=== PATIENT | female | born 1980 | race Caucasian/White ===

== ENCOUNTER 2022-10-28 22:09 | Emergency (ER) | payer MEDICAID ==
[~2022-10-28] VITALS: Ht 160 cm; Wt 50.9 kg
[2022-10-28 22:22] VITALS: BP 121/82
[2022-10-28 23:52] LABS: CLARITY,URINE CLEAR (Clear); COLOR,URINE YELLOW (Yellow); GLUCOSE, URINE NEGATIVE (Neg); KETONES,URINE TRACE mg/dl (Neg); LEUKOCYTE ESTERASE ,URINE NEGATIVE (Neg); NITRITES, URINE NEGATIVE (Neg); OCCULT BLOOD,URINE TRACE-INTACT (Neg); PROTEIN,URINE NEGATIVE (Neg); UROBILINOGEN,URINE 0.2 E.U/dL (0.2-1.0)
[2022-10-28 23:59] LABS: UA COLLECTION TYPE CLN CATCH MIDSTREAM
[2022-10-29] LABS: BACTERIA,URINE FEW /HPF (Neg); RBC,URINE 0-2 /HPF (0-2); SQUAMOUS EPITHELIAL CELL,UR FEW /LPF (FEW); WBC,URINE 0-4 /HPF (0-4)
[2022-10-29 00:01] LABS: MUCUS STRANDS FEW /LPF (Neg)
[2022-10-29 00:15] LABS: BASOPHILS # (AUTO) 0.1 X10'3 (0-0.2); BASOPHILS % (AUTO) 1.1 % (0-1); EOSINOPHILS # (AUTO) 0.3 X10'3 (0-0.9); EOSINOPHILS % (AUTO) 3.1 % (0-6); HEMATOCRIT 38.1 % (35.0-45.0); HEMOGLOBIN 13.1 g/dl (12.0-16.0); LYMPHOCYTES # (AUTO) 2.7 X10'3 (1.1-4.8); LYMPHOCYTES % (AUTO) 25.5 % (21-51); MEAN CORPUSCULAR HEMOGLOBIN 32.6 PG (27.0-31.0); MEAN CORPUSCULAR HGB CONC 34.4 g/dL (33.0-36.5); MEAN CORPUSCULAR VOLUME 94.9 FL (78-98); MEAN PLATELET VOLUME 8.1 FL (7.4-10.4); MONOCYTES # (AUTO) 0.6 X10'3 (0-0.9); MONOCYTES % (AUTO) 5.8 % (2-12); NEUTROPHILS % (AUTO) 64.5 % (42-75); PLATELET COUNT 200 X10'3 (140-440); RED BLOOD COUNT 4.02 X10'6 (4.20-5.60); RED CELL DISTRIBUTION WIDTH 13.2 % (11.5-14.5); WHITE BLOOD COUNT 10.8 X10'3 (4.5-11.0)
[2022-10-29] MEDS ORDERED: LIDO-12 TP (00:21)
[2022-10-29] MEDS ORDERED: CYCL-1 PO (00:21)
[2022-10-29] MEDS ORDERED: ketorolac trometh inj. 60 MG/2 ML VIAL IM ONE (00:25)
[2022-10-29 00:28] LABS: ALANINE AMINOTRANSFERASE 42 U/L (12-78); ALBUMIN/GLOBULIN RATIO 1.2 (1.1-1.5); ALKALINE PHOSPHATASE 47 IU/L (46-116); ANION GAP 9 (8-16); ASPARTATE AMINO TRANSFERASE 24 U/L (10-37); BILIRUBIN,TOTAL 0.2 MG/DL (0.1-1.0); BLOOD UREA NITROGEN 8 MG/DL (7-18); BUN/CREATININE RATIO 11.1 (10.0-20.0); CALCIUM 8.5 MG/DL (8.5-10.1); CHLORIDE 104 MMOL/L (99-107); CREATININE 0.72 MG/DL (0.40-0.90); GLUCOSE 85 MG/DL (70-104); SODIUM 140 MMOL/L (135-145); TOTAL CARBON DIOXIDE 27.2 MMOL/L (24-32); TOTAL PROTEIN 7.3 G/DL (6.4-8.2); eGFR 88 ML/MIN
== END 2022-10-29 00:34 | disposition home or self-care (01) ==
LOC: ER 22:10
DX: G89.29 Other chronic pain (principal); M54.59 Other low back pain; F17.200 Nicotine dependence, unspecified, uncomplicated; Z59.00 Homelessness unspecified; Z79.899 Other long term (current) drug therapy
CPT/HCPCS: 36415; 80053; 81001; 85025; 96372; 99283; J1885

== ENCOUNTER 2023-05-16 19:38 | Emergency (ER) | payer MEDICAID ==
[~2023-05-16] VITALS: Ht 160 cm; Wt 50.0 kg
[~2023-05-16 19:38] MED LIST: CYCL-1 PO; LIDO-12 TP
[2023-05-16 19:44] VITALS: BP 123/78; PULSE 102; RESP 16; TEMP 98.2; O2SAT 100
== END 2023-05-16 21:51 | disposition home or self-care (01) ==
LOC: ER 19:39
DX: S00.03XA Contusion of scalp, initial encounter (principal); W18.39XA Other fall on same level, initial encounter; Y93.89 Activity, other specified; Y92.89 Other specified places as the place of occurrence of the external cause; Y99.8 Other external cause status
CPT/HCPCS: 70450; 99284

== ENCOUNTER 2023-07-05 08:14 | Emergency (ER) | payer OTHER, MEDICAID ==
[~2023-07-05] VITALS: Ht 157.5 cm; Wt 51.5 kg
[2023-07-05] MEDS ORDERED: ketorolac trometh. 30mg/ml inj. IM ONE (09:00)
[2023-07-05] MEDS ORDERED: CYCL-394 PO (09:05)
[2023-07-05] MEDS ORDERED: IBUP-1986 PO (09:05)
[2023-07-05] MEDS: cyclobenzaprine 10mg tablet PO ONE (09:13)
[2023-07-05] MEDS: ketorolac tromethamine 15mg/ml inj. IM ONE (09:14)
[2023-07-05 09:20] VITALS: BP 108/68; PULSE 88; RESP 18; TEMP 98; O2SAT 98
== END 2023-07-05 09:22 | disposition home or self-care (01) ==
LOC: ER 08:14
DX: S39.012A Strain of muscle, fascia and tendon of lower back, initial encounter (principal); S29.012A Strain of muscle and tendon of back wall of thorax, initial encounter; Z72.89 Other problems related to lifestyle; Z56.0 Unemployment, unspecified; Z79.899 Other long term (current) drug therapy; Z79.1 Long term (current) use of non-steroidal anti-inflammatories (NSAID); V89.2XXA Person injured in unspecified motor-vehicle accident, traffic, initial encounter; Y93.89 Activity, other specified; Y92.89 Other specified places as the place of occurrence of the external cause; Y99.8 Other external cause status
CPT/HCPCS: 96372; 99283; J1885

== ENCOUNTER 2024-06-30 14:09 | Inpatient (IN) | payer MEDICAID ==
[~2024-06-30] VITALS: Ht 160 cm; Wt 50.0 kg
[~2024-06-30 14:09] MED LIST changes: +IBUP-1986 PO; -LIDO-12 TP; +LIDO-6 TP
[2024-06-30] MEDS: normal saline 1000ML IV soln IVB ONE ×2 (17:17→21:47)
[2024-06-30] MEDS: morphine 4 MG/ML inj SYRINge IV ONE ×2 (17:17→20:41)
[2024-06-30 17:25] LABS: ALANINE AMINOTRANSFERASE 19 U/L (12-78); ALBUMIN 2.5 G/DL (3.4-5.0); ALBUMIN/GLOBULIN RATIO 0.6 (1.1-1.5); ALKALINE PHOSPHATASE 94 IU/L (46-116); ANION GAP 9 (8-16); ASPARTATE AMINO TRANSFERASE 10 U/L (10-37); BASOPHILS % (AUTO) 0.1 % (0-1); BILIRUBIN,TOTAL 0.4 MG/DL (0.1-1.0); BLOOD UREA NITROGEN 7 MG/DL (7-18); BUN/CREATININE RATIO 11.7 (10.0-20.0); C-REACTIVE PROTEIN 17.33 MG/DL (0.0-0.5); CALCIUM 8.4 MG/DL (8.5-10.1); CHLORIDE 95 MMOL/L (99-107); EOSINOPHILS % (AUTO) 0.1 % (0-6); GLUCOSE 142 MG/DL (70-104); HEMATOCRIT 37.2 % (35.0-45.0); HEMOGLOBIN 12.1 g/dl (12.0-16.0); LYMPHOCYTES # (AUTO) 1.5 X10'3 (1.1-4.8); LYMPHOCYTES % (AUTO) 6.1 % (21-51); MEAN CORPUSCULAR HGB CONC 32.6 g/dL (33.0-36.5); MEAN PLATELET VOLUME 7.5 FL (7.4-10.4); MONOCYTES # (AUTO) 1.5 X10'3 (0-0.9); NEUTROPHILS # (AUTO) 22.1 X10'3 (1.8-7.7); NEUTROPHILS % (AUTO) 87.7 % (42-75); PLATELET COUNT 333 X10'3 (140-440); POTASSIUM 3.6 MMOL/L (3.5-5.1); RED BLOOD COUNT 4.04 X10'6 (4.20-5.60); RED CELL DISTRIBUTION WIDTH 14.2 % (11.5-14.5); SODIUM 134 MMOL/L (135-145); TOTAL CARBON DIOXIDE 30.2 MMOL/L (24-32); TOTAL PROTEIN 6.9 G/DL (6.4-8.2); eCRCL 93 ML/MIN; eGFR > 90 ML/MIN
[2024-06-30 17:33] LABS: WHITE BLOOD COUNT 25.2 X10'3 (4.5-11.0)
[2024-06-30] MEDS ORDERED: iohexol 350MG/ML 100ml bottle IV ONE (17:53)
[2024-06-30] MEDS ORDERED: iohexol 350 MG/ML 50ML vial IV ONE (17:53)
[2024-06-30 18:22] LABS: TOTAL CELLS COUNTED 100
[2024-06-30 18:23] LABS: PLATELET ESTIMATE NORMAL
[2024-06-30 18:29] LABS: MAGNESIUM 1.7 MG/DL (1.5-2.4)
[2024-06-30] MEDS: piperacillin/tazo 3.375gm/50ml 50 ML IV ONE (18:36)
[2024-06-30] MEDS: vancomycin/NS 1 GM ADD-VANTAGE 250 ML IV SCH (18:43)
[2024-06-30] MEDS ORDERED: magnesium Cl slow-release 64mg tablet PO PRN (22:25)
[2024-06-30] MEDS ORDERED: potassium Cl 20 mEq SR tablet PO PRN (22:25)
[2024-06-30] MEDS ORDERED: magnesium sulf-water 2g/50mL 50 ML IV PRN (22:25)
[2024-06-30] MEDS ORDERED: HYDROmorphone/PF 0.2 MG/ML SYRINGE IV PRN (22:25)
[2024-06-30] MEDS ORDERED: magnesium hydroxide 30ml (MOM) UD suspension PO PRN (22:25)
[2024-06-30] MEDS ORDERED: ondansetron/PF 4mg/2ml inj IV PRN (22:25)
[2024-06-30] MEDS ORDERED: magnesium sulf-water 4G/100mL 100 ML IV PRN (22:25)
[2024-06-30] MEDS ORDERED: potassium Cl 40MEQ/1/2NS 520ml 520 ML IV PRN (22:25)
[2024-06-30 22:57] LABS: HEMOGLOBIN A1C 5.6 % (4.5-6.2)
[2024-06-30] MEDS: HYDROmorphone inj. 0.5 MG/0.5 ML DISP.SYRIN IV PRN (23:19)
[2024-06-30] MEDS ORDERED: GABA-530 PO (23:35)
[2024-06-30] MEDS ORDERED: CYCL-1 PO (23:35)
[2024-06-30] MEDS ORDERED: HYDR-3973 (23:35)
[2024-06-30] MEDS ORDERED: DICL100G59 TOP (23:35)
[2024-06-30] MEDS ORDERED: IBUP-1986 PO (23:35)
[2024-06-30] MEDS ORDERED: ESTR1PAT93 TOP (23:35)
[2024-06-30 23:48] LABS: URINE HCG NEGATIVE (NEG)
[2024-06-30 23:52] LABS: BILIRUBIN,URINE NEGATIVE (Neg); CLARITY,URINE CLEAR (Clear); COLOR,URINE YELLOW (Yellow); GLUCOSE, URINE NEGATIVE (Neg); KETONES,URINE NEGATIVE (Neg); LEUKOCYTE ESTERASE ,URINE NEGATIVE (Neg); NITRITES, URINE NEGATIVE (Neg); OCCULT BLOOD,URINE TRACE-INTACT (Neg); PROTEIN,URINE NEGATIVE (Neg); UROBILINOGEN,URINE 0.2 E.U/dL (0.2-1.0)
[2024-06-30 23:55] LABS: UA COLLECTION TYPE CLN CATCH MIDSTREAM
[2024-07-01 00:01] LABS: BACTERIA,URINE 1+ /HPF (Neg); RBC,URINE 0-2 /HPF (0-2); SQUAMOUS EPITHELIAL CELL,UR MODERATE /LPF (FEW); WBC,URINE 0-4 /HPF (0-4)
[2024-07-01] MEDS: normal saline 1000ml 1,000 ML IV SCH (00:07)
[2024-07-01] MEDS: mag hydrox/Alum hydrox/simeth 30ml oral suspension PO PRN (00:24)
[2024-07-01] MEDS ORDERED: cyclobenzaprine 10mg tablet PO PRN (02:45)
[2024-07-01 03:07] LABS: BASOPHILS % (AUTO) 0.1 % (0-1); EOSINOPHILS % (AUTO) 0 % (0-6); HEMOGLOBIN 10.9 g/dl (12.0-16.0); LYMPHOCYTES # (AUTO) 1.8 X10'3 (1.1-4.8); LYMPHOCYTES % (AUTO) 6.5 % (21-51); MEAN CORPUSCULAR HEMOGLOBIN 30.5 PG (27.0-31.0); MEAN CORPUSCULAR HGB CONC 33.1 g/dL (33.0-36.5); MEAN CORPUSCULAR VOLUME 92.2 FL (78-98); MEAN PLATELET VOLUME 7.3 FL (7.4-10.4); MONOCYTES # (AUTO) 1.9 X10'3 (0-0.9); MONOCYTES % (AUTO) 7.1 % (2-12); NEUTROPHILS # (AUTO) 23.5 X10'3 (1.8-7.7); NEUTROPHILS % (AUTO) 86.3 % (42-75); PLATELET COUNT 298 X10'3 (140-440); RED BLOOD COUNT 3.59 X10'6 (4.20-5.60); RED CELL DISTRIBUTION WIDTH 14.1 % (11.5-14.5)
[2024-07-01 03:12] LABS: WHITE BLOOD COUNT 27.2 X10'3 (4.5-11.0)
[2024-07-01 03:24] LABS: ALANINE AMINOTRANSFERASE 12 U/L (12-78); ALBUMIN 1.9 G/DL (3.4-5.0); ALBUMIN/GLOBULIN RATIO 0.5 (1.1-1.5); ALKALINE PHOSPHATASE 87 IU/L (46-116); ANION GAP 9 (8-16); ASPARTATE AMINO TRANSFERASE 18 U/L (10-37); BILIRUBIN,TOTAL 0.4 MG/DL (0.1-1.0); BLOOD UREA NITROGEN 6 MG/DL (7-18); BUN/CREATININE RATIO 9.8 (10.0-20.0); CALCIUM 7.4 MG/DL (8.5-10.1); CHLORIDE 100 MMOL/L (99-107); CHOL/HDL RATIO 2.5 (0.00-4.99); CHOLESTEROL 96 MG/DL (0-200); CREATINE KINASE 253 U/L (26-192); CREATININE 0.61 MG/DL (0.40-0.90); GLUCOSE 102 MG/DL (70-104); HDL CHOLESTEROL 39 MG/DL (35-60); LDL CHOLESTEROL 50 MG/DL (50-100); MAGNESIUM 1.3 MG/DL (1.5-2.4); POTASSIUM 3.5 MMOL/L (3.5-5.1); SODIUM 132 MMOL/L (135-145); TOTAL CARBON DIOXIDE 23.1 MMOL/L (24-32); TOTAL PROTEIN 5.8 G/DL (6.4-8.2); TRIGLYCERIDES 36 MG/DL (20-135); eCRCL 92 ML/MIN; eGFR > 90 ML/MIN
[2024-07-01 03:26] LABS: TOTAL CELLS COUNTED 100
[2024-07-01] MEDS: acetaminophen 325mg tablet PO PRN (05:01)
[2024-07-01] MEDS: K and/or MAG REPLACEMENT MC SCH (08:00)
[2024-07-01] MEDS: gabapentin 100mg capsule PO SCH (08:23)
[2024-07-01] MEDS: pantoprazole 40mg Tablet.DR PO SCH (08:23)
[2024-07-01] MEDS: vancomycin/NS 1 GM ADD-VANTAGE 250 ML IV SCH (08:25)
[2024-07-01] MEDS: heparin, porcine 5000 units/ml vial SQ SCH ×2 (08:25→15:21)
[2024-07-01] MEDS: docusate sod 100mg capsule PO SCH (08:25)
[2024-07-01] MEDS: NORepinephrine 8mg/ 250ml NS 250 ML IV PRN (08:58)
[2024-07-01 09:06] LABS: D-DIMER 2.96 MG/L FEU (0-0.50)
[2024-07-01 09:24] LABS: PRO BRAIN NATRIURETIC PEPTIDE 1059 PG/ML (0-125); THYROID STIMULATING HORMONE 0.68 ulU/ml (0.34-4.50)
[2024-07-01] MEDS: morphine 2 MG/ML inj. syringe IV PRN (09:40)
[2024-07-01 11:25] LABS: OSMOLALITY 270 MOSM/K (280-300)
[2024-07-01] MEDS: albumin (human) 25% 100ml IV 400 ML IV ONE (12:07)
[2024-07-01] MEDS: albumin (Human) 5% 250ml 250 ML IV SCH (12:45)
[2024-07-01] MEDS: COMMUNICATION ORDER 1 EA MISC MC ONE (13:13)
[2024-07-01 13:20] LABS: URINE AMPHETAMINE SCREEN POSITIVE (Neg); URINE BARBITUATE SCREEN NEGATIVE (Neg); URINE BENZODIAZEPINES SCREEN NEGATIVE (Neg); URINE CANNABINOID SCREEN NEGATIVE (Neg); URINE COCAINE SCREEN POSITIVE (Neg); URINE METHADONE SCREEN NEGATIVE (Neg); URINE OPIATE SCREEN POSITIVE (Neg); URINE PHENCYCLIDINE SCREEN NEGATIVE (Neg)
[2024-07-01] MEDS: nicotine 21mg patch - 24 hr TD SCH (15:08)
[2024-07-01] MEDS: piperacillin/tazo 4.5gm/100ml 100 ML IV SCH (15:10)
[2024-07-01] MEDS ORDERED: magnesium sulf-water 4G/100mL 100 ML IV PRN (16:10)
[2024-07-01] MEDS ORDERED: magnesium sulf-water 2g/50mL 50 ML IV PRN (16:10)
[2024-07-01] MEDS ORDERED: magnesium Cl slow-release 64mg tablet PO PRN (16:10)
[2024-07-01 16:48] LABS: CREATINE KINASE 314 U/L (26-192); LIPASE 14 U/L (16-77); PHOSPHORUS 2.8 MG/DL (2.3-4.5)
[2024-07-01 19:51] VITALS: BP 95/62; PULSE 117; RESP 13; TEMP 99.7; O2SAT 100
[2024-07-01 20:00] VITALS: RESP 13; O2SAT 100
[2024-07-01 22:45] VITALS: BP 90/50; PULSE 97; RESP 16; TEMP 99.7; O2SAT 97
[2024-07-02] VITALS (8 sets, daily range): BP systolic 115–150; BP diastolic 67–93; PULSE 97–122; RESP 17–22; TEMP 97.4–98.8; O2SAT 94–100
[2024-07-02] MEDS: VANCOMYCIN LEVEL IV ONE (07:30)
[2024-07-02 08:11] LABS: ALANINE AMINOTRANSFERASE 23 U/L (12-78); ALBUMIN 2.8 G/DL (3.4-5.0); ALBUMIN/GLOBULIN RATIO 0.8 (1.1-1.5); ALKALINE PHOSPHATASE 109 IU/L (46-116); ANION GAP 8 (8-16); ASPARTATE AMINO TRANSFERASE 21 U/L (10-37); BILIRUBIN,TOTAL 0.3 MG/DL (0.1-1.0); BLOOD UREA NITROGEN 8 MG/DL (7-18); BUN/CREATININE RATIO 16.7 (10.0-20.0); CALCIUM 7.9 MG/DL (8.5-10.1); CHLORIDE 104 MMOL/L (99-107); CREATININE 0.48 MG/DL (0.40-0.90); GLUCOSE 107 MG/DL (70-104); POTASSIUM 3.4 MMOL/L (3.5-5.1); SODIUM 133 MMOL/L (135-145); TOTAL CARBON DIOXIDE 21.1 MMOL/L (24-32); TOTAL PROTEIN 6.1 G/DL (6.4-8.2); eCRCL 117 ML/MIN; eGFR > 90 ML/MIN
[2024-07-02 08:12] LABS: MAGNESIUM 1.6 MG/DL (1.5-2.4); VANCOMYCIN,TROUGH 7.5 ug/mL (10.0-20.0)
[2024-07-02 08:16] LABS: BASOPHILS % (AUTO) 0.2 % (0-1); EOSINOPHILS # (AUTO) 0.1 X10'3 (0-0.9); EOSINOPHILS % (AUTO) 1.1 % (0-6); HEMATOCRIT 28.4 % (35.0-45.0); HEMOGLOBIN 9.4 g/dl (12.0-16.0); LYMPHOCYTES # (AUTO) 1.3 X10'3 (1.1-4.8); MEAN CORPUSCULAR HEMOGLOBIN 30.5 PG (27.0-31.0); MEAN CORPUSCULAR VOLUME 92.4 FL (78-98); MEAN PLATELET VOLUME 7.7 FL (7.4-10.4); MONOCYTES # (AUTO) 0.7 X10'3 (0-0.9); NEUTROPHILS # (AUTO) 10.9 X10'3 (1.8-7.7); NEUTROPHILS % (AUTO) 83.7 % (42-75); PLATELET COUNT 217 X10'3 (140-440); RED BLOOD COUNT 3.08 X10'6 (4.20-5.60); RED CELL DISTRIBUTION WIDTH 14.2 % (11.5-14.5); WHITE BLOOD COUNT 13.1 X10'3 (4.5-11.0)
[2024-07-02] MEDS: potassium Cl 20 mEq SR tablet PO PRN (08:32)
[2024-07-02] MEDS: morphine 2 MG/ML inj. syringe IV PRN (10:29)
[2024-07-02] MEDS: nicotine 21mg patch - 24 hr TD SCH (14:25)
[2024-07-02] MEDS: lactose-reduced food (Ensure Enlive) - 237ml bottle PO SCH (18:37)
[2024-07-02] MEDS ORDERED: nicotine prolacrilex 4mg gum BC PRN (19:20)
[2024-07-02] MEDS: NICOTINE POLACRILEX 2 MG LOZENGE BC PRN (20:52)
[2024-07-02] MEDS: estradiol 1mg tablet PO SCH (21:57)
[2024-07-02] MEDS: VANCOMYCIN/WATER FOR INJ (PEG) 1.25GM/250 ML IVPB IV SCH (22:01)
[2024-07-03] MEDS: ESTRADIOL TOP SCH (02:45)
[2024-07-03] MEDS: [UNRECOGNIZED DRUG - OTHER] TOP SCH (02:45)
[2024-07-03 06:00] VITALS: BP 116/82; PULSE 92; RESP 15; TEMP 98; O2SAT 99
[2024-07-03 07:40] LABS: BASOPHILS # (AUTO) 0.1 X10'3 (0-0.2); BASOPHILS % (AUTO) 0.5 % (0-1); EOSINOPHILS # (AUTO) 0.2 X10'3 (0-0.9); EOSINOPHILS % (AUTO) 1.6 % (0-6); HEMATOCRIT 29.5 % (35.0-45.0); HEMOGLOBIN 9.9 g/dl (12.0-16.0); LYMPHOCYTES # (AUTO) 1.2 X10'3 (1.1-4.8); LYMPHOCYTES % (AUTO) 10.1 % (21-51); MEAN CORPUSCULAR HEMOGLOBIN 30.7 PG (27.0-31.0); MEAN CORPUSCULAR HGB CONC 33.5 g/dL (33.0-36.5); MEAN CORPUSCULAR VOLUME 91.7 FL (78-98); MEAN PLATELET VOLUME 7.7 FL (7.4-10.4); MONOCYTES # (AUTO) 0.8 X10'3 (0-0.9); MONOCYTES % (AUTO) 6.7 % (2-12); NEUTROPHILS # (AUTO) 9.9 X10'3 (1.8-7.7); NEUTROPHILS % (AUTO) 81.1 % (42-75); PLATELET COUNT 251 X10'3 (140-440); RED BLOOD COUNT 3.22 X10'6 (4.20-5.60); RED CELL DISTRIBUTION WIDTH 14.2 % (11.5-14.5); WHITE BLOOD COUNT 12.2 X10'3 (4.5-11.0)
[2024-07-03 08:03] LABS: ALANINE AMINOTRANSFERASE 21 U/L (12-78); ALBUMIN 2.5 G/DL (3.4-5.0); ALBUMIN/GLOBULIN RATIO 0.7 (1.1-1.5); ALKALINE PHOSPHATASE 105 IU/L (46-116); ANION GAP 8 (8-16); ASPARTATE AMINO TRANSFERASE 20 U/L (10-37); BILIRUBIN,TOTAL 0.5 MG/DL (0.1-1.0); BLOOD UREA NITROGEN 6 MG/DL (7-18); BUN/CREATININE RATIO 11.5 (10.0-20.0); CALCIUM 8.1 MG/DL (8.5-10.1); CHLORIDE 104 MMOL/L (99-107); CREATININE 0.52 MG/DL (0.40-0.90); GLUCOSE 98 MG/DL (70-104); MAGNESIUM 1.6 MG/DL (1.5-2.4); SODIUM 134 MMOL/L (135-145); TOTAL CARBON DIOXIDE 21.9 MMOL/L (24-32); TOTAL PROTEIN 6.2 G/DL (6.4-8.2); eCRCL 108 ML/MIN; eGFR > 90 ML/MIN
[2024-07-03 08:55] VITALS: RESP 15; O2SAT 99
[2024-07-03 11:00] VITALS: BP 113/77; PULSE 95; RESP 18; TEMP 97.1; O2SAT 99
[2024-07-03 18:00] VITALS: BP 114/78; PULSE 100; RESP 15; TEMP 98; O2SAT 99
[2024-07-03 20:00] VITALS: RESP 15; O2SAT 99
[2024-07-03 22:00] VITALS: BP 127/87; PULSE 107; RESP 12; TEMP 97.8; O2SAT 94
[2024-07-04 02:00] VITALS: BP 100/69; PULSE 84; RESP 13; TEMP 97.5; O2SAT 97
[2024-07-04 06:00] VITALS: BP 100/71; PULSE 86; RESP 18; TEMP 97.5; O2SAT 98
[2024-07-04 06:26] LABS: BASOPHILS # (AUTO) 0.1 X10'3 (0-0.2); BASOPHILS % (AUTO) 0.8 % (0-1); EOSINOPHILS # (AUTO) 0.4 X10'3 (0-0.9); EOSINOPHILS % (AUTO) 4.2 % (0-6); HEMATOCRIT 32.2 % (35.0-45.0); HEMOGLOBIN 10.8 g/dl (12.0-16.0); LYMPHOCYTES # (AUTO) 1.5 X10'3 (1.1-4.8); LYMPHOCYTES % (AUTO) 17.1 % (21-51); MEAN CORPUSCULAR HEMOGLOBIN 31.1 PG (27.0-31.0); MEAN CORPUSCULAR HGB CONC 33.7 g/dL (33.0-36.5); MEAN CORPUSCULAR VOLUME 92.1 FL (78-98); MEAN PLATELET VOLUME 7.5 FL (7.4-10.4); MONOCYTES # (AUTO) 0.6 X10'3 (0-0.9); MONOCYTES % (AUTO) 6.5 % (2-12); NEUTROPHILS # (AUTO) 6.4 X10'3 (1.8-7.7); NEUTROPHILS % (AUTO) 71.4 % (42-75); PLATELET COUNT 320 X10'3 (140-440); RED BLOOD COUNT 3.49 X10'6 (4.20-5.60); RED CELL DISTRIBUTION WIDTH 14.1 % (11.5-14.5)
[2024-07-04 07:08] LABS: ALANINE AMINOTRANSFERASE 23 U/L (12-78); ALBUMIN 2.5 G/DL (3.4-5.0); ALBUMIN/GLOBULIN RATIO 0.6 (1.1-1.5); ALKALINE PHOSPHATASE 106 IU/L (46-116); ANION GAP 8 (8-16); ASPARTATE AMINO TRANSFERASE 13 U/L (10-37); BILIRUBIN,TOTAL 0.3 MG/DL (0.1-1.0); BLOOD UREA NITROGEN 10 MG/DL (7-18); BUN/CREATININE RATIO 16.7 (10.0-20.0); CALCIUM 8.6 MG/DL (8.5-10.1); CHLORIDE 101 MMOL/L (99-107); GLUCOSE 106 MG/DL (70-104); MAGNESIUM 1.8 MG/DL (1.5-2.4); POTASSIUM 4.5 MMOL/L (3.5-5.1); SODIUM 135 MMOL/L (135-145); TOTAL CARBON DIOXIDE 26.5 MMOL/L (24-32); TOTAL PROTEIN 6.8 G/DL (6.4-8.2); eCRCL 93 ML/MIN; eGFR > 90 ML/MIN
[2024-07-04 08:25] VITALS: RESP 18; O2SAT 98
[2024-07-04] MEDS ORDERED: CEPH250T PO (09:57)
[2024-07-04] MEDS: VANCOMYCIN LEVEL IV ONE (10:08)
[2024-07-04] MEDS ORDERED: HYDR-3973 PO (10:56)
[2024-07-04 11:00] VITALS: BP 110/72; PULSE 74; RESP 21; TEMP 97.3; O2SAT 100
[2024-07-04] MEDS ORDERED: HYDR-3965 PO (11:02)
[2024-07-04 13:21] VITALS: RESP 16
[2024-07-04] MEDS ORDERED: VANCOMYCIN/WATER FOR INJ (PEG) 1.5GM/300 ML IVPB IV SCH (22:00)
[2024-07-06] MEDS ORDERED: VANCOMYCIN LEVEL IV ONE (09:30)
== END 2024-07-04 13:47 | disposition home or self-care (01) | DRG 720 ==
LOC: ER 14:10 → ED HOLD 22:30 → PCU 3S 07-01 19:40
PROVIDERS: ADMIT Internal Medicine Critical Care Medicine; ATTEND Family Medicine
PROC: CB121ZZ Planar Nuclear Medicine Imaging of Lungs and Bronchi using Technetium 99m (Tc-99m) (ICD-10-PCS; principal; 2024-07-01)
DX: A41.9 Sepsis, unspecified organism (principal); R65.21 Severe sepsis with septic shock; I50.33 Acute on chronic diastolic (congestive) heart failure; M60.051 Infective myositis, right thigh; L03.113 Cellulitis of right upper limb; F14.129 Cocaine abuse with intoxication, unspecified; E11.9 Type 2 diabetes mellitus without complications; M54.59 Other low back pain; F15.129 Other stimulant abuse with intoxication, unspecified; G89.4 Chronic pain syndrome; Z95.0 Presence of cardiac pacemaker; Z79.899 Other long term (current) drug therapy; Z90.710 Acquired absence of both cervix and uterus
CPT/HCPCS: 36415; 71045; 71250; 73700; 75635; 78582; 80053; 80061; 80202; 80305; 81001; 81025; 82550; 83036; 83605; 83690; 83735; 83880; 83930; 84100; 84145; 84443; 84484; 85007; 85025; 85379; 86140; 87040; 87081; 93005; 93306; 93971; 96361; 96365; 96368; 96375; 96376; 99285; A9539; A9540; G0378; J1171; J1644; J2270; J2543; J3370; J3372; J7030; J7040; J7120; P9045; P9047; Q9967